=== PATIENT | female | born 1965 | race African-American/Black ===

== ENCOUNTER 2016-09-14 15:35 | Emergency (ER) | payer OTHER ==
[~2016-09-14] VITALS: Ht 157.5 cm; Wt 78.6 kg
[~2016-09-14 15:35] MED LIST: ANAPROX DS550 M1 PO; BENTYL20 MG PO; CARISOPRODOL350 MG PO; CLEOCIN300 MG PO; COLACE100 MG PO; FLEXERIL10 MG PO; GLUCOPHAGE500 MG PO; GLUCOTROL10 MG PO; HUMALOG100 UNIT/1 SQ; LEVEMIR100 UNIT/2 SC; LEVEMIR100 UNIT/2 SQ; LIDODERM 5% P1 PATCH TD; LISINOPRIL40 MG PO; LODINE400 MG PO; LORTAB 5-325 M1 EACH PO; LYRICA150 MG PO; LYRICA75 MG PO; MACROBID100 MG PO; NAPROSYN500 MG PO; OXYCODONE-APAP1 EACH PO; REGLAN10 MG PO; SIMVASTATIN20 MG PO; TRAMADOL HCL50 MG PO; ULTRAM50 MG PO; ZESTRIL,PRINIVI10 MG PO; ZOCOR20 MG PO; [UNRECOGNIZED DRUG - REMARK]
[2016-09-14] MEDS ORDERED: LIDODERM 5% P1 PATCH TD (17:41)
[2016-09-14] MEDS ORDERED: VALIUM5 MG PO (17:41)
[2016-09-14] MEDS ORDERED: PREDNISONE20 MG PO (17:41)
[2016-09-14 18:08] VITALS: BP 150/89
== END 2016-09-14 18:09 | disposition home or self-care (01) ==
LOC: EME 15:35
DX: M54.5 Low back pain (principal); S80.00XA Contusion of unspecified knee, initial encounter; W10.9XXA Fall (on) (from) unspecified stairs and steps, initial encounter; G89.29 Other chronic pain; M19.90 Unspecified osteoarthritis, unspecified site; I10 Essential (primary) hypertension; E11.9 Type 2 diabetes mellitus without complications; E78.5 Hyperlipidemia, unspecified; Z79.4 Long term (current) use of insulin; F17.200 Nicotine dependence, unspecified, uncomplicated
CPT/HCPCS: 72100; 72170; 73564; 99281; 99283

== ENCOUNTER 2017-02-13 13:50 | Emergency (ER) | payer OTHER ==
[~2017-02-13 13:50] MED LIST changes: +PREDNISONE20 MG PO; +VALIUM5 MG PO
== END 2017-02-13 14:38 | disposition left against medical advice (07) ==
LOC: EME 13:50
DX: M79.605 Pain in left leg (principal); Z53.21 Procedure and treatment not carried out due to patient leaving prior to being seen by health care provider

== ENCOUNTER 2017-08-17 13:41 | Observation (INO) | payer OTHER ==
[~2017-08-17] VITALS: Ht 154.9 cm; Wt 63.2 kg
[2017-08-17 14:46] LABS: BASOPHIL COUNT 0.1 K/uL (0-0.1); EOSINOPHIL (%) 2.9 % (0-5); EOSINOPHIL COUNT 0.2 K/uL (0-0.3); HEMATOCRIT 46.1 % (36.0-46.0); HEMOGLOBIN 16.3 G/DL (11.9-15.5); IMMATURE GRANULOCYTE (%) 0.4 % (0.0-0.7); LYMPHOCYTE (%) 27.6 % (15-42); MCH 29.9 PG (29.0-34.0); MCHC 35.4 G/DL (30.0-36.0); MCV 84.4 FL (83-99); MONOCYTE (%) 6.6 % (3-12); MONOCYTE COUNT 0.5 K/uL (0-0.8); NEUTROPHIL (%) 61.5 % (45-76); NEUTROPHIL COUNT 4.4 K/uL (1.8-6.4); PLATELET COUNT 334 K/uL (156-360); RBC DIS.WIDTH-CV 11.8 % (11.8-14.6); RBC DIS.WIDTH-SD 35.6 % (39-53); RED BLOOD COUNT 5.46 M/uL (3.80-5.20); WHITE BLOOD COUNT 7.2 K/uL (4.1-10.2)
[2017-08-17 14:48] LABS: CARBON DIOXIDE (BICARBONATE) 33.4 MEQ/L (20-31)
[2017-08-17 14:54] LABS: ALBUMIN 4.2 g/dL (3.2-4.8)
[2017-08-17 14:55] LABS: CHLORIDE 87 mEq/L (99-109); POTASSIUM 4.5 mEq/L (3.7-5.4); SODIUM 129 mEq/L (136-147)
[2017-08-17 14:57] LABS: TOTAL PROTEIN 7.7 g/dL (6.4-8.3)
[2017-08-17 14:59] LABS: TOTAL BILIRUBIN 0.5 mg/dL (0.0-1.0)
[2017-08-17 15:00] LABS: ALKALINE PHOSPHATASE 141 IU/L (3-129); CREATININE 1.3 mg/dL (0.6-1.3); GFR ESTIMATE (CALCULATED) 56 mL/min/
[2017-08-17 15:01] LABS: GLUCOSE 735 mg/dL (70-99)
[2017-08-17 15:02] LABS: AST (GOT) 11 IU/L (2-34); UREA NITROGEN (BUN) 15 mg/dL (9-23)
[2017-08-17 15:03] LABS: ALT (GPT) 17 IU/L (3-49)
[2017-08-17 15:04] LABS: LIPASE 18 U/L (1.0-51.0)
[2017-08-17 15:06] LABS: TROP-I INTERPRETATION NEGATIVE; TROPONIN-I < 0.01 ng/mL (0.0-0.30)
[2017-08-17] MEDS ORDERED: FLEXERIL10 MG PO (18:30)
[2017-08-17] MEDS ORDERED: MOTRIN800 MG PO (18:35)
[2017-08-17] MEDS ORDERED: PRILOSEC20 MG PO (18:35)
[2017-08-17] MEDS ORDERED: HYDROCHLOROTHIA25 MG PO (18:35)
[2017-08-17] MEDS ORDERED: NORCO 5/3251 TABLET PO (18:36)
[2017-08-17 20:36] VITALS: BP 118/70
[2017-08-17 21:06] LABS: THYROTROPIN (TSH) 0.44 MIU/L (0.4-5.5)
[2017-08-18 00:11] VITALS: BP 131/61
[2017-08-18 03:47] VITALS: BP 128/78
[2017-08-18 05:22] LABS: HEMATOCRIT 37.7 % (36.0-46.0); MCH 29.1 PG (29.0-34.0); MCHC 34.7 G/DL (30.0-36.0); MCV 83.8 FL (83-99); PLATELET COUNT 329 K/uL (156-360); RBC DIS.WIDTH-CV 11.8 % (11.8-14.6); RBC DIS.WIDTH-SD 35.8 % (39-53); WHITE BLOOD COUNT 8.5 K/uL (4.1-10.2)
[2017-08-18 05:24] LABS: HEMOGLOBIN 13.1 G/DL (11.9-15.5)
[2017-08-18 05:38] LABS: CHLORIDE 102 MEQ/L (99-109); UREA NITROGEN (BUN) 11 mg/dL (9-23)
[2017-08-18 05:42] LABS: CREATININE 0.7 MG/DL (0.6-1.3); GFR ESTIMATE (CALCULATED) > 59 mL/min/; GLUCOSE 326 mg/dL (70-99); POTASSIUM 3.2 MEQ/L (3.7-5.4); SODIUM 137 MEQ/L (136-147)
[2017-08-18 08:40] VITALS: BP 133/17
[2017-08-18 10:18] LABS: APPEARANCE CLEAR ((CLEAR)); BILIRUBIN NEGATIVE; BLOOD NEGATIVE; COLOR YELLOW ((YELLOW)); GLUCOSE (STRIP) >=500; KETONES NEGATIVE; LEUKOCYTES SMALL; NITRITE NEGATIVE; PROTEIN (STRIP) NEGATIVE; SPECIFIC GRAVITY 1.036 (1.000-1.030); UROBILINOGEN 0.2 MG/DL (0.2-1.0)
[2017-08-18 10:26] LABS: BACTERIA RARE /HPF; EPITHELIAL CELLS RARE /HPF; MUCUS NONE SEEN /LPF; RED BLOOD CELLS 30-40 /HPF (0-5); UCUL ADDED? NO; WHITE BLOOD CELLS 0-5 /HPF (0-5)
[2017-08-18 10:48] LABS: HEMOGLOBIN A1c (GLYCOHEMOGLOB) 16.1 % (Below 5.7)
[2017-08-18 11:18] VITALS: BP 95/54
[2017-08-18 11:22] VITALS: BP 130/67
== END 2017-08-18 16:34 | disposition home or self-care (01) ==
LOC: EME 13:41 → EDOF 19:05 → ENRESERV 19:10 → 4SOUTH 20:08
PROVIDERS: Emergency Medicine; Hospitalist
DX: E11.65 Type 2 diabetes mellitus with hyperglycemia (principal); E86.0 Dehydration; Z91.14 Patient's other noncompliance with medication regimen; I10 Essential (primary) hypertension; E78.5 Hyperlipidemia, unspecified; G89.29 Other chronic pain; F17.200 Nicotine dependence, unspecified, uncomplicated; R63.4 Abnormal weight loss; Z79.891 Long term (current) use of opiate analgesic; Z90.49 Acquired absence of other specified parts of digestive tract; Z90.710 Acquired absence of both cervix and uterus; Z90.721 Acquired absence of ovaries, unilateral; Z90.79 Acquired absence of other genital organ(s); Z80.1 Family history of malignant neoplasm of trachea, bronchus and lung; Z79.4 Long term (current) use of insulin
CPT/HCPCS: 71046; 74177; 80048; 80053; 81003; 82010; 82803; 82948; 83036; 83690; 84443; 84484; 85025; 85027; 93005; 99281; 99285; G0378; J1815; J2405; J7030; J7120

== ENCOUNTER 2017-10-25 14:50 | Inpatient (IN) | payer OTHER ==
[~2017-10-25] VITALS: Ht 152.4 cm; Wt 63.7 kg
[~2017-10-25 14:50] MED LIST changes: +HYDROCHLOROTHIA25 MG PO; +MOTRIN800 MG PO; +NORCO 5/3251 TABLET PO; +PRILOSEC20 MG PO
[2017-10-25 16:48] LABS: HEMATOCRIT 46.3 % (36.0-46.0); HEMOGLOBIN 15.7 G/DL (11.9-15.5); MCH 29.8 PG (29.0-34.0); MCHC 33.9 G/DL (30.0-36.0); PLATELET COUNT 381 K/uL (156-360); RBC DIS.WIDTH-CV 12.1 % (11.8-14.6); RBC DIS.WIDTH-SD 38.8 % (39-53); RED BLOOD COUNT 5.26 M/uL (3.80-5.20); WHITE BLOOD COUNT 5.8 K/uL (4.1-10.2)
[2017-10-25 16:57] LABS: ALBUMIN 4.6 g/dL (3.2-4.8); CHLORIDE 89 mEq/L (99-109); POTASSIUM 4.4 mEq/L (3.7-5.4); SODIUM 136 mEq/L (136-147)
[2017-10-25 17:00] LABS: TOTAL PROTEIN 8.7 g/dL (6.4-8.3)
[2017-10-25 17:02] LABS: TOTAL BILIRUBIN 0.2 mg/dL (0.0-1.0)
[2017-10-25 17:03] LABS: ALKALINE PHOSPHATASE 121 IU/L (3-129); CREATININE 2.1 mg/dL (0.6-1.3); GFR ESTIMATE (CALCULATED) 32 mL/min/
[2017-10-25 17:04] LABS: UREA NITROGEN (BUN) 58 mg/dL (9-23)
[2017-10-25 17:05] LABS: AST (GOT) 18 IU/L (2-34); GLUCOSE 425 mg/dL (70-99)
[2017-10-25 17:06] LABS: ALT (GPT) 15 IU/L (3-49)
[2017-10-25 18:36] LABS: CARBON DIOXIDE (BICARBONATE) 38.2 MEQ/L (20-31)
[2017-10-25] MEDS ORDERED: LYRICA100 MG PO (18:52)
[2017-10-25] MEDS ORDERED: IBU800 MG PO (18:53)
[2017-10-25] MEDS ORDERED: METFORMIN HCL500 MG PO (18:54)
[2017-10-25] MEDS ORDERED: HYDROCHLOROTHIA25 MG PO (18:55)
[2017-10-25] MEDS ORDERED: CALCIUM500 M4 PO (18:57)
[2017-10-25] MEDS ORDERED: FISH OIL 1,0001 EAC7 PO (18:57)
[2017-10-25] MEDS ORDERED: VITAMIN D5000 UNI1 PO (18:57)
[2017-10-25 20:15] LABS: APPEARANCE SL.HAZY ((CLEAR)); BILIRUBIN NEGATIVE; BLOOD NEGATIVE; COLOR YELLOW ((YELLOW)); GLUCOSE (STRIP) >=500; KETONES NEGATIVE; LEUKOCYTES SMALL; NITRITE NEGATIVE; PROTEIN (STRIP) NEGATIVE; SPECIFIC GRAVITY 1.018 (1.000-1.030); UROBILINOGEN 0.2 MG/DL (0.2-1.0)
[2017-10-25 20:30] LABS: BACTERIA RARE /HPF; EPITHELIAL CELLS 2+ /HPF; MUCUS NONE SEEN /LPF; RED BLOOD CELLS 0-5 /HPF (0-5); UCUL ADDED? YES
[2017-10-26 00:21] VITALS: BP 152/75
[2017-10-26 03:29] VITALS: BP 140/64
[2017-10-26 06:05] LABS: HEMATOCRIT 36.9 % (36.0-46.0); MCH 29.4 PG (29.0-34.0); MCHC 33.3 G/DL (30.0-36.0); MCV 88.3 FL (83-99); PLATELET COUNT 359 K/uL (156-360); WHITE BLOOD COUNT 6.7 K/uL (4.1-10.2)
[2017-10-26 06:06] LABS: HEMOGLOBIN 12.3 G/DL (11.9-15.5); RED BLOOD COUNT 4.18 M/uL (3.80-5.20)
[2017-10-26 06:13] LABS: CHLORIDE 100 MEQ/L (99-109); POTASSIUM 3.7 MEQ/L (3.7-5.4); UREA NITROGEN (BUN) 33 mg/dL (9-23)
[2017-10-26 06:14] LABS: CREATININE 1.2 MG/DL (0.6-1.3); GFR ESTIMATE (CALCULATED) > 59 mL/min/; GLUCOSE 191 mg/dL (70-99); SODIUM 145 MEQ/L (136-147)
[2017-10-26 07:09] VITALS: BP 98/55
[2017-10-26 11:19] VITALS: BP 102/56
[2017-10-26 13:41] LABS: HEMOGLOBIN A1c (GLYCOHEMOGLOB) 12.4 % (Below 5.7)
[2017-10-26 15:07] VITALS: BP 120/56
[2017-10-26 20:01] VITALS: BP 123/65
[2017-10-27 00:16] VITALS: BP 124/57
[2017-10-27 04:14] VITALS: BP 129/73
[2017-10-27 06:59] VITALS: BP 107/54
[2017-10-27 10:46] LABS: MAGNESIUM 1.6 mg/dl (1.3-2.7); PHOSPHORUS 1.2 mg/dL (2.5-4.9)
[2017-10-27 17:47] VITALS: BP 129/63
[2017-10-27 19:56] VITALS: BP 122/65
[2017-10-27 23:54] VITALS: BP 131/63
[2017-10-28 04:19] VITALS: BP 99/56
[2017-10-28 06:12] LABS: CHLORIDE 105 MEQ/L (99-109); GFR ESTIMATE (CALCULATED) > 59 mL/min/; GLUCOSE 166 mg/dL (70-99); POTASSIUM 3.8 MEQ/L (3.7-5.4); SODIUM 141 MEQ/L (136-147); UREA NITROGEN (BUN) 14 mg/dL (9-23)
[2017-10-28 06:13] LABS: CREATININE 0.7 MG/DL (0.6-1.3)
[2017-10-28 07:11] VITALS: BP 106/56
[2017-10-28 15:43] VITALS: BP 116/67
[2017-10-29 00:31] VITALS: BP 109/55
[2017-10-29 07:10] VITALS: BP 110/38
[2017-10-29 15:05] VITALS: BP 106/55
[2017-10-30 00:13] VITALS: BP 93/65
[2017-10-30 07:36] VITALS: BP 120/65
[2017-10-30] MEDS ORDERED: NICOTINE PATCH1 EAC2 TD (11:37)
[2017-10-30 13:47] VITALS: BP 120/65
== END 2017-10-30 15:20 | disposition home health service (06) | DRG 684 ==
LOC: EME 14:50 → 5SOUTH 22:32 → EDOF 22:32 → ENRESERV 23:22 → 5SOUTH 10-26 00:14
PROVIDERS: Hospitalist; Physician Assistant Medical
DX: N17.9 Acute kidney failure, unspecified (principal); E11.65 Type 2 diabetes mellitus with hyperglycemia; E11.649 Type 2 diabetes mellitus with hypoglycemia without coma; Z91.14 Patient's other noncompliance with medication regimen; E86.0 Dehydration; F17.200 Nicotine dependence, unspecified, uncomplicated; E11.40 Type 2 diabetes mellitus with diabetic neuropathy, unspecified; G89.29 Other chronic pain; G58.8 Other specified mononeuropathies; M51.26 Other intervertebral disc displacement, lumbar region; M51.24 Other intervertebral disc displacement, thoracic region; Z79.84 Long term (current) use of oral hypoglycemic drugs
CPT/HCPCS: 70450; 70551; 72146; 72148; 80048; 80053; 81003; 82010; 82803; 82948; 83036; 83735; 84100; 85027; 87086 GA; 93005; 99281; 99285; J1170; J1644; J1815; J2060; J2405; J7030; J7042

== ENCOUNTER 2017-11-11 11:52 | Observation (INO) | payer OTHER ==
[~2017-11-11] VITALS: Ht 152.4 cm; Wt 65.3 kg
[~2017-11-11 11:52] MED LIST changes: +CALCIUM500 M4 PO; +FISH OIL 1,0001 EAC7 PO; +LYRICA100 MG PO; +METFORMIN HCL500 MG PO; +NICOTINE PATCH1 EAC2 TD; +VITAMIN D5000 UNI1 PO
[2017-11-11 12:45] LABS: HEMATOCRIT 41.5 % (36.0-46.0); HEMOGLOBIN 13.5 G/DL (11.9-15.5); MCH 29.6 PG (29.0-34.0); MCHC 32.5 G/DL (30.0-36.0); PLATELET COUNT 359 K/uL (156-360); RBC DIS.WIDTH-CV 13.3 % (11.8-14.6); RBC DIS.WIDTH-SD 44.7 % (39-53); RED BLOOD COUNT 4.56 M/uL (3.80-5.20); WHITE BLOOD COUNT 6.6 K/uL (4.1-10.2)
[2017-11-11 13:04] LABS: CHLORIDE 108 mEq/L (99-109); POTASSIUM 4.3 mEq/L (3.7-5.4); SODIUM 141 mEq/L (136-147)
[2017-11-11 13:05] LABS: GLUCOSE 267 mg/dL (70-99)
[2017-11-11 13:09] LABS: CREATININE 0.9 mg/dL (0.6-1.3); GFR ESTIMATE (CALCULATED) > 59 mL/min/
[2017-11-11 13:10] LABS: UREA NITROGEN (BUN) 11 mg/dL (9-23)
[2017-11-11 17:55] VITALS: BP 184/74
[2017-11-11 19:32] VITALS: BP 189/82
[2017-11-11 21:01] LABS: TROP-I INTERPRETATION NEGATIVE; TROPONIN-I < 0.01 ng/mL (0.0-0.30)
[2017-11-11 23:51] VITALS: BP 141/65
[2017-11-12 02:57] LABS: HEMATOCRIT 34.9 % (36.0-46.0); HEMOGLOBIN 11.5 G/DL (11.9-15.5); MCH 29.6 PG (29.0-34.0); MCV 89.7 FL (83-99); PLATELET COUNT 344 K/uL (156-360); RBC DIS.WIDTH-CV 13.2 % (11.8-14.6); RBC DIS.WIDTH-SD 43.5 % (39-53); RED BLOOD COUNT 3.89 M/uL (3.80-5.20); WHITE BLOOD COUNT 7.2 K/uL (4.1-10.2)
[2017-11-12 02:59] LABS: CHLORIDE 111 mEq/L (99-109); POTASSIUM 3.7 mEq/L (3.7-5.4); SODIUM 143 mEq/L (136-147)
[2017-11-12 03:04] LABS: CREATININE 0.8 mg/dL (0.6-1.3); GFR ESTIMATE (CALCULATED) > 59 mL/min/
[2017-11-12 03:05] LABS: UREA NITROGEN (BUN) 10 mg/dL (9-23)
[2017-11-12 03:07] LABS: TROP-I INTERPRETATION NEGATIVE; TROPONIN-I < 0.01 ng/mL (0.0-0.30)
[2017-11-12 03:11] LABS: GLUCOSE 97 mg/dL (70-99)
[2017-11-12 04:40] VITALS: BP 155/67
[2017-11-12 07:50] VITALS: BP 121/64
[2017-11-12 10:30] VITALS: BP 156/79
[2017-11-12 10:31] VITALS: BP 145/70; BP 149/70
[2017-11-12 11:36] VITALS: BP 134/60
[2017-11-12 11:39] VITALS: BP 134/60
== END 2017-11-12 15:38 | disposition home or self-care (01) ==
LOC: EME 11:52 → EDOF 16:09 → ENRESERV 16:11 → 4SOUTH 17:41
PROVIDERS: Hospitalist
DX: R55 Syncope and collapse (principal); R42 Dizziness and giddiness; R51 Headache; G89.29 Other chronic pain; E11.65 Type 2 diabetes mellitus with hyperglycemia; Z79.4 Long term (current) use of insulin; E78.5 Hyperlipidemia, unspecified; Z90.49 Acquired absence of other specified parts of digestive tract; Z90.710 Acquired absence of both cervix and uterus; F17.210 Nicotine dependence, cigarettes, uncomplicated; Z82.49 Family history of ischemic heart disease and other diseases of the circulatory system
CPT/HCPCS: 71045; 80048; 82948; 84484; 85027; 93005; 99281; 99285; G0378; G8978 GP CJ; G8979 GP CH; G8980 CJ; G8987 GO CI; G8988 GO CH; G8989 GO CI; J1644; J1815; J2270; J7030